=== PATIENT | male | born 1990 | race Caucasian/White ===

== ENCOUNTER 2018-04-11 08:30 | Emergency (ER) | payer SELFPAY ==
[2018-04-11] MEDS: FLUORESCEIN STRIP RIGHT EYE (09:17)
[2018-04-11] MEDS: TETRACAINE 0.5% 4 ML OPH RIGHT EYE (09:17)
[2018-04-11] MEDS: CIPROFLOXACIN 0.3% 2.5 ML OPH LEFT EYE (10:45)
== END 2018-04-11 10:44 | disposition home or self-care (01) ==
LOC: FTE 08:30
DX: T15.02XA Foreign body in cornea, left eye, initial encounter (principal); X58.XXXA Exposure to other specified factors, initial encounter; Y92.89 Other specified places as the place of occurrence of the external cause
CPT/HCPCS: 65220; 99283-25